=== PATIENT | male | born 2000 | race Two or more races ===

== ENCOUNTER 2020-12-14 11:35 | Emergency (ER) | payer BC ==
[2020-12-14 12:13] VITALS: BMI 37.8
[2020-12-14 13:43] LABS: BASO % 0.7 % (0-2.0); EOS % 2.6 % (0-4.5); HEMATOCRIT 45.3 % (35.4-49); HEMOGLOBIN 15.5 GM/dL (11.7-16.9); LYMPH % 38.5 % (8-40); MCH 28.8 pg (25.7-33.7); MCHC 34.2 g/dl (32.0-35.9); MEAN CELL VOLUME 84.4 fl (80-96); MEAN PLT VOLUME 8.4 fl (7.5-11.1); MONO % 7.6 % (3.8-10.2); NEUT % 50.6 % (42.8-82.8); PLATELET COUNT 359 K/MM3 (134-434); RBC 5.37 M/mm3 (4.00-5.60); RDW 13.3 % (11.9-15.9); WHITE BLOOD COUNT 7.1 K/mm3 (4.0-10.0)
[2020-12-14 13:56] LABS: URINE APPEARANCE CLEAR; URINE BILIRUBIN NEGATIVE (NEGATIVE); URINE COLOR YELLOW; URINE GLUCOSE (UA) NEGATIVE (NEGATIVE); URINE KETONE TRACE (NEGATIVE); URINE LEUK ESTERASE NEGATIVE (NEGATIVE); URINE NITRITE NEGATIVE (NEGATIVE); URINE PROTEIN NEGATIVE (NEGATIVE)
[2020-12-14 14:05] LABS: ALBUMIN 3.9 g/dl (3.4-5.0); BLOOD UREA NITROGEN 10.8 mg/dL (7-18); CALCIUM 9.4 mg/dL (8.5-10.1)
[2020-12-14 14:08] LABS: CREATININE 0.8 mg/dL (0.55-1.3)
[2020-12-14 14:09] LABS: BILIRUBIN,TOTAL 0.8 mg/dL (0.2-1)
[2020-12-14] MEDS ORDERED: ACETAMINOPHEN 1000 MG/100 ML VIAL (NON FORMULARY) IVPB ONE (15:06)
[2020-12-14] MEDS ORDERED: SODIUM CHLORIDE 1,000 ML IV STA (15:06)
[2020-12-14] MEDS ORDERED: LACTULOSE 20 GM/30 ML UDC (FOR ORAL USE ONLY) PO ONE (15:06)
[2020-12-14] MEDS ORDERED: MAG HYDROX/AL HYDROX/SIMETH 30 ML UNIT-DOSE CUP PO ONE (15:06)
[2020-12-14 16:51] VITALS: BP 117/68; PULSE 80; TEMP 98.7
== END 2020-12-14 16:52 | disposition home or self-care (01) ==
LOC: JER 11:35
PROC: 3E0333Z Introduction of Anti-inflammatory into Peripheral Vein, Percutaneous Approach (ICD-10-PCS; principal; 2020-12-14)
PROC: 3E0337Z Introduction of Electrolytic and Water Balance Substance into Peripheral Vein, Percutaneous Approach (ICD-10-PCS; 2020-12-14)
DX: K59.00 Constipation, unspecified (principal); R10.32 Left lower quadrant pain
CPT/HCPCS: 36415; 74177-TC; 80053; 81003; 85025; 87086; 87491; 87591; 96361; 96374; 99285-25; J0131

== ENCOUNTER 2021-06-05 11:16 | Emergency (ER) | payer BC ==
[2021-06-05 11:24] VITALS: BP 121/73; PULSE 104; TEMP 98.5; BMI 34.1
[2021-06-05] MEDS ORDERED: LIDOCAINE 1%/EPI 1:100000 (20 ML MULTI DOSE VIAL) ONE (12:24)
== END 2021-06-05 13:09 | disposition home or self-care (01) ==
LOC: JERFT 11:16
PROC: 0H98XZZ Drainage of Buttock Skin, External Approach (ICD-10-PCS; principal; 2021-06-05)
DX: L05.01 Pilonidal cyst with abscess (principal)
CPT/HCPCS: 10060; 87070; 87186; 87205; 99282-25

== ENCOUNTER 2021-06-07 13:44 | Emergency (ER) | payer BC ==
[2021-06-07 13:55] VITALS: BP 123/84; PULSE 89; TEMP 98.1; BMI 33.7
== END 2021-06-07 14:56 | disposition home or self-care (01) ==
LOC: JERFT 13:44
DX: Z48.00 Encounter for change or removal of nonsurgical wound dressing (principal)
CPT/HCPCS: 99281-25

== ENCOUNTER 2021-06-09 13:14 | Emergency (ER) | payer BC ==
[2021-06-09 13:40] VITALS: BP 122/80; PULSE 94; TEMP 98; BMI 34.1
== END 2021-06-09 14:48 | disposition home or self-care (01) ==
LOC: JERFT 13:14
DX: Z48.00 Encounter for change or removal of nonsurgical wound dressing (principal)
CPT/HCPCS: 99281-25

== ENCOUNTER 2023-03-15 21:20 | Emergency (ER) | payer BC ==
[2023-03-15 21:28] VITALS: BP 135/75; PULSE 97; RESP 18; TEMP 98.4; BMI 33.4
[2023-03-15] MEDS ORDERED: IBUPROFEN 400 MG TABLET (FP) PO ONE ×2 (22:28→22:31)
== END 2023-03-16 | disposition home or self-care (01) ==
LOC: JERFT 21:20
PROC: 2W3QX1Z Immobilization of Right Lower Leg using Splint (ICD-10-PCS; principal; 2023-03-15)
DX: S92.901A Unspecified fracture of right foot, initial encounter for closed fracture (principal); M25.571 Pain in right ankle and joints of right foot; M25.471 Effusion, right ankle; W18.49XA Other slipping, tripping and stumbling without falling, initial encounter; Y93.01 Activity, walking, marching and hiking; Y92.009 Unspecified place in unspecified non-institutional (private) residence as the place of occurrence of the external cause
CPT/HCPCS: 73610-TC-RT-FY; 99283-25